=== PATIENT | male | born 1995 | race Caucasian/White ===

== ENCOUNTER 2019-01-13 12:37 | Outpatient (CLI) | payer OTHER ==
--- NOTE | 2019-01-17 15:18 | OP Clinic Progress Note ---
DATE OF VISIT: 01/13/2019 SUBJECTIVE: Bridger Gastelum is a 23-year-old male who presents to clinic today as a referral from Dr. Perez. Dr. Perez saw the patient in clinic either earlier this week or last week for an ingrown toenail that was bothering the patient on the right foot. The patient has had issues with that area twice and most recently tried trimming it back and was still having pain as of at least a few days ago. The patient presents today for the likelihood of having a procedure done to remove the offending border and would like to discuss options. The patient does not admit to any pain or problems at this time. He actually denies any pain at this time today and states that it has improved greatly. The patient also admits that he has fear of having the procedure done based on what he has heard from others. The patient does not admit to any fevers, chills, nausea, vomiting, shortness of breath or chest pain. OBJECTIVE: Vitals: Temperature 98.9 degrees Fahrenheit, heart rate 74, respiration rate 18, blood pressure 140/74. O2 saturation is 99% on room air. Vascular: Palpable pulses DP and PT, right foot. Capillary refill time is less than 3 seconds to the toes of the right foot. There is no edema noted, right foot. There is perhaps very, very mild edema noted on the medial border of the right great toenail area. Dermatologic: There is no erythema or purulence or malodor or drainage of any kind on the right great toe area. There is no other concerning lesions noted, right foot. It is obvious that the patient has trimmed back as a slant back procedure the distal medial aspect of the right great toenail. This is obviously where he was having some pain previously. Musculoskeletal: There is no pain on palpation noted on the medial border of the right great toenail area. There were no other gross abnormalities noted, right or left foot. Neurologic: Light touch sensation is intact to the toes, bilaterally. ASSESSMENT AND PLAN: 1. History of onychocryptosis. We discussed and educated the patient on the procedure for a partial nail avulsion versus partial nail avulsion with chemical matrixectomy. The patient expresses that he is not having any pain and would like to hold off on any procedure at this time. He apologizes for coming in and deciding not to do the procedure and I tried to reassure him that I am completely okay with that. I was able to describe and educate the plan for the procedure, with a couple of different options and ways that I can make it as painless as possible. The patient has decided that he will hold off on any sort of procedure at this time and that he will notify me if he decides to have something done later on. Return to clinic as needed. He was encouraged to come back at the beginning of any sort of discomfort in that area and we can do either a partial nail avulsion or a permanent partial nail avulsion with chemical matrixectomy. Kacy HaysPRosetteM.(Dictated/not signed) /[employer] [id number] /mab MTDD
== END 2019-01-13 13:10 ==
LOC: POD 12:37
PROVIDERS: ATTEND Podiatrist Foot & Ankle Surgery
DX: Z87.2 Personal history of diseases of the skin and subcutaneous tissue (principal); L60.0 Ingrowing nail
CPT/HCPCS: 99213

== ENCOUNTER 2019-05-19 08:37 | Outpatient (CLI) | payer OTHER ==
--- NOTE | 2019-05-23 11:17 | OP Clinic Progress Note ---
DATE OF VISIT: 05/19/2019 SUBJECTIVE: Bridger is a 23-year-old male presenting to the clinic today for right great toe medial border ingrown toenail. The patient states he has had this one other time on this toe before on this border a little over a year ago and at our last visit we were planning on doing a partial nail avulsion versus with possible chemical matrixectomy and the patient decided that it wasnt hurting and therefore he didnt want to have it done, which was fine. He presents today stating that it is hurting again and that it is not draining at all but it is getting painful on that right great toe medial border. The patient does not admit to any fevers, chills, nausea, vomiting, shortness of breath or chest pain. He would like to go ahead and just have a partial nail avulsion done without the permanent procedure. He understands that it may return again despite efforts to remove the ingrown portion. He understands that risk and would like to go forward anyway. He denies any drug allergies of any kind, and denies being diabetic. OBJECTIVE: Vitals: Temperature 97.9 degrees Fahrenheit, heart rate 106, respiration rate 18, blood pressure 134/81. O2 saturation is 97% on room air. Vascular: Palpable DP and PT pulses, right foot. Capillary refill time is less than 3 seconds to the toes of the right foot. There is no edema noted, right foot. There is mild pink irritation and maybe slight edema noted on the medial border of the right great toenail. Dermatologic: There is no erythema, purulence or any sort of drainage or malodor on the right great toe medial border. There is perhaps mild pink discoloration at the edge where it is irritated. There is no erythema, though. There is no drainage of any kind. There is obvious incurvation of the toenail. Musculoskeletal: There is pain on palpation noted today on the medial border of the right great toenail. There were no other gross abnormalities noted, right foot. Neurologic: Light touch sensation is intact to the toes, right foot. ASSESSMENT AND PLAN: 1. Onychocryptosis, right great toe medial border. The risks and benefits including but not limited to bleeding, infection and possible return of an ingrown toenail were discussed with the patient today with respect to the procedure of a partial nail avulsion of the right great toe medial border. He would not like to do the chemical matrixectomy. He understands that the toenail may return and cause pain again. The consent was signed and placed in the chart today. PROCEDURE #1: Partial nail avulsion, right great toe medial border. Detail of procedure: An alcohol swab was used to cleanse the base of the right great toe. An injection consisting of 6 mL of a 1:1 mix of 2% lidocaine plain and 0.5% Marcaine plain were injected into the base of the toe. At this time the toe was cleansed with a Betadine prep. Confirming good anesthesia, we went forward with loosening the medial border of the right great toenail from its surrounding edges and then a nail splitter was used to avulse the medial border of the right great toenail. At this time it was confirmed that all the nail was removed. The rest of the nail was trimmed across the distal aspect. At this time the site was rinsed with a copious amount of normal saline. There was mild bleeding which was controlled with pressure. Dressings were applied consisting of triple antibiotic ointment, 4x4 gauze, 2x2 gauze, Kerlix and 1-inch Coban beginning on the great toe and ending on the distal forefoot to help hold it on the toe. The patient tolerated the procedure well. He was given appropriate postprocedure instructions verbally and by written instructions. Return to the clinic in 2 weeks. He was encouraged to use triple antibiotic ointment and a Band-Aid daily for the next week and a half and then to just switch to a Band- Aid until I see him in 2 weeks. This will allow it to begin to dry out. He understands and stated at the end of the visit that he likely will not see us again so I dont think he is planning on coming back but he knows that I would encourage that he does for follow-up to make sure it is healing well. Randolph Wright D.P.M. Lamberto Job#: [id number] MTDD
== END 2019-05-19 09:07 ==
LOC: POD 08:37
PROVIDERS: ATTEND Podiatrist Foot & Ankle Surgery
DX: L60.0 Ingrowing nail (principal)
CPT/HCPCS: 11730; 99213; A4554